=== PATIENT | male | born 1990 | race Caucasian/White ===

== ENCOUNTER → 2020-12-10 | Outpatient (CLI) | payer OTHER ==
[~2020-12-10] MED LIST: LIDOCAINE 1% MDV 20ML VIAL As Ordered ONE
[2020-12-10 09:15] VITALS: BP 129/68
--- NOTE | 2020-12-10 16:24 | REP ---
INDICATION: RESIDENTIAL antibiotic INTRA ABD ABCESS PICC LINE. COMPARISON: None. TECHNIQUE: The procedure was performed under the direct supervision of Dr. Lanier. The risks and benefits of the procedure were explained to the patient and informed consent was obtained. The right basilic vein was localized using ultrasound guidance. The skin was prepped and draped in a sterile fashion. Open 1 mL of 1% lidocaine was used as a local anesthetic. Using ultrasound guidance the basilic vein was cannulated and a 0.018 guidewire was inserted and advanced to the SVC using fluoroscopic guidance, and last image hold technology. The needle was removed and a 4.5 [place] dilator and peel-away sheath was inserted over the guide wire. A 4.5 [place] single lumen catheter was cut to length of 44 cm. The dilator was removed and the catheter was inserted over the guide wire with the tip ending in the SVC. The peel-away sheath was removed and the catheter was flushed with heparinized saline as per Hospital protocol. The catheter was affixed to the skin and a sterile dressing was applied. Estimated blood loss: Less than 1 mL The patient tolerated the procedure well and there were no immediate complications. 0.1 minutes of fluoro time was utilized for this procedure. FINDINGS: None IMPRESSION: PICC line insertion right basilic vein with the tip ending in the SVC. <Electronically signed by Chuck English > 12/10/20 1617 <Electronically signed by Kwaku Lanier > 12/10/20 1621
== END ==
LOC: M IRPRO 09:12
PROVIDERS: ATTEND Preventive Medicine Undersea and Hyperbaric Medicine
DX: K65.1 Peritoneal abscess (principal); Z79.2 Long term (current) use of antibiotics
CPT/HCPCS: 36571; 76937; C1751; J1642; J1644